=== PATIENT | male | born 1970 | race Caucasian/White ===

== ENCOUNTER 2021-03-10 14:58 | Emergency (ER) | payer MEDICARE | END 2021-03-10 19:58 | disposition home or self-care (01) | LOC: ER1 14:58 | DX: S60.021A Contusion of right index finger without damage to nail, initial encounter (principal); F17.210 Nicotine dependence, cigarettes, uncomplicated; Z21 Asymptomatic human immunodeficiency virus [HIV] infection status; X58.XXXA Exposure to other specified factors, initial encounter | CPT/HCPCS: 73130; 99283 ==